=== PATIENT | female | born 1965 | race Caucasian/White ===

== ENCOUNTER 2016-05-24 06:00 | Day surgery (SDC) | payer OTHER ==
--- NOTE | 2016-03-29 14:40 | PCM.HPANE ---
Patient Data Date of Service: Mar 29, 2016 Surgeon Admitting Provider: Attending Provider:Perico Owens MD Primary Care Physician:Perico Miller MD Other Provider:Razia Gracia Anesthesia Reason for Visit Stg 2 Cystocele, Stg 1-2 Vault Prolapse STG 2 CYSTOCELE, STG 1-2 VAULT PROLAPSE Ht/WT & BMI Height (Feet): 5 Height (Inches): 4 Weight (Kilograms): 86.18 Body Mass Index 32.00 Allergies Coded Allergies: No Known Allergies (Unverified , 11/18/15) Past Anesthesia History Anesthesia History: Positive for:: Abnormal Airway ("loses" voice a lot, being worked up ), Difficult Intubation (vocal ENT request smallest tube poss, chronic hoarseness), Denies:: Anesthesia Reactions, Fam Anesthesia Reaction Diabetes History Hx Diabetes?: No MRSA MRSA: Yes (2007- ) Medications Hypertension Medication: No Home Meds Incl Beta Teresa: No Reported Medications Aspirin 81 Mg [id number] Mg PO DAILY Ref 0 03/27/16 Phenazopyridine (Pyridium)100 Mg [id number] Mg PO TID PRN For Pain Ref 0 03/27/16 [nitrofurantoin] No Conflict Check60 Mg ONCE post coital 03/27/16 [omeprazole] No Conflict CheckUnknown Dose DAILY 03/27/16 Beclomethasone Dipropionate (Qvar)8.7 Gm Aer.w.adap1 Puff INHALATION BID #8.7 GM 03/27/16 Cetirizine HCl (Zyrtec)10 Mg Mgbhhpl99 Mg PO HS #30 CAPSULE Ref 0 03/27/16 Clonidine 0.1 Mg Tablet0.1 Mg PO HS Ref 0 03/27/16 Bupropion ER 150 Mg Tablet.er150 Mg PO DAILY Ref 0 03/27/16 Ciprofloxacin (Cipro)500 Mg Xsyhyr495 Mg PO BID Ref 0 03/27/16 Discontinued Scripts Ranitidine 75 Mg Ycvfvn78 Mg PO BID #60 TABLET Prov:Anne Iraheta MD 02/12/16 Meloxicam 7.5 Mg Tablet7.5 Mg PO DAILY #30 TABLET Ref 0 Prov:Anne Iraheta MD 02/12/16 History History of ENT Problems?: Yes HEENT History: Positive for:: Abnormal Airway ("loses" voice a lot, being worked up ) Difficult Intubation (vocal ENT request smallest tube poss, chronic hoarseness ) Hearing Problem (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, multiple surgeries, PE tubes x 3 ) Denies:: Cataracts Glaucoma Denture Type: Full- Upper Hx of Heart Problems?: No Cardiovascular History: Denies:: AICD Abdominal Aortic Aneurism Atrial Fibrillation Cardiac Surgery Congestive Heart Failure Coronary Artery Disease Edema Heart Murmur Hypertension Irregular Heartbeat Pacemaker Peripheral Vascular Hx of Respiratory Problem?: Yes Respiratory History: Positive for:: Asthma COPD (suspected) Use of Inhalers / NEBS Denies:: Oxygen Administration Pneumonia Tuberculosis Use of C-PAP Machine Hx Neurologic Problems?: No Neurological History: Denies:: CVA Dizziness Headaches Multiple Sclerosis Parkinson's Disease Seizures TIA Hx of GI Problems?: Yes Gastrointestinal History: Positive for:: Gall Bladder Disease (removed ) Hepatitis (chronic Hep C) Liver Disease Denies:: Cirrhosis Gastroesphageal Reflux Gastrointestinal Bleeding Heartburn Hiatal Hernia Rectal Bleeding Hx of Problems?: Yes Genitourinary History: Positive for:: Urinary Tract Infection (recurrent ) Denies:: Kidney Stones Female Hx: Denies:: Currently Problems with Breasts? Skin History: Positive for:: History Skin Disorders? (spider bite on bottom "getting much better") Denies:: Pressure Ulcers Hx Musculoskeletal Problems?: Yes Musculoskeletal History: Positive for:: Back Injury (prior back surgery) Musculoskeletal Trauma Osteoarthritis (doesnt know type of arthritis) Rheumatoid Arthritis Denies:: Fibromyalgia (pt thinks she has this, never been worked up for) Joint Replacement Myasthenia Gravis Hx of Psycho/Social Problems?: Yes Psycho Social History: Positive for:: Anxiety Hx Depression Hx Surgeries?: Yes (ruth, back surgery, hyst, mesh, bladder sling) Hx Any Other Health Problems?: Yes Other History: Denies:: Cancer Thyroid Disease History Blood Transfusions: Positive for:: Accept Blood Products? Denies:: Blood Transfusions Hx Diabetes: No Hx Alcohol Use: NoHx Substance Use: No Smoking Status: Unknown if Ever Smoker Have You Smoked inLast 12 mo: Yes Stop/Bang P-Blood Pressure: treated: No B- Body Mass Index > 35 kg/m2: No A- Age over 50: No N- Neck Large Circumference: No G- Gender Male: No Risk Assessment Category Category 1A: Patient has history of documented sleep apnea, and HAS NOT received any narcotic, sedative or anesthesia administration during this stay. Category 1B: Patient has history of documented sleep apnea, and HAS received any narcotic , sedative or anesthesia administration during this stay Category 2: Patient has SUSPECTED Obstructive Sleep Apnea, and HAS received any narcotic , sedative or anesthesia administration during this stay. Category 3: Patient has SUSPECTED Obstructive Sleep Apnea and HAS NOT received narcotic, sedative or anesthesia administration during this stay. Category 4: Outpatient in Procedural Areas with known sleep apnea or who screen positive for High Risk via the STOP/BANG questionnaire. Plan Impression Patient chart reviewed, patient interviewed and anesthestic plan with risks, benefits, and alternatives discussed, and informed consent obtained. Other Patient no showed. Cancel this. Christofer Spann MD Mar 29, 2016 10:25
[~2016-05-24] VITALS: Ht 162.6 cm; Wt 83.4 kg
[2016-05-24] VITALS (13 sets, daily range): BP systolic 108–131; BP diastolic 57–77; PULSE 87–98; RESP 10–18; O2SAT 94–97
[2016-05-24] MEDS: Lactated Ringer's 1,000 ML IV SCH ×3 (05:00→08:16)
[~2016-05-24 06:00] MED LIST: BECL8.7A5 INHALATION; BUPR150T12 PO; CETI10CA PO; CLON0.1T PO; CeFAZolin Inj 2 GM in IV Premix 1 EACH IV ONE; Lactated Ringer's 1,000 ML IV SCH; PHEN-683 PO; Phenazopyridine 97.5 mg Tablet PO ONE; SULF1TAB7 PO; omeprazole
[2016-05-24] MEDS ORDERED: fentaNYL-PF 50 mCg/mL 2 mL Inj ONE (06:01)
[2016-05-24] MEDS ORDERED: Ondansetron 2 mg/mL 2 mL Inj ONE (06:01)
[2016-05-24] MEDS ORDERED: Dexamethasone 4 mg/mL Inj ONE (06:01)
[2016-05-24] MEDS ORDERED: Propofol 10,000 mCg/mL 20 mL Inj ONE (06:01)
[2016-05-24] MEDS ORDERED: HYDROmorphone 2 mg/mL Inj ONE (06:01)
--- NOTE | 2016-05-24 07:24 | PCM.HPANE ---
Patient Data Date of Service: May 24, 2016 Surgeon Admitting Provider: Attending Provider:Perico Owens MD Primary Care Physician:Perico Miller MD Other Provider:Razia Gracia Anesthesia Reason for Visit Stg 2 Cystocele, Stg 1-2 Vault Prolapse STG 2 CYSTOCELE, STG 1-2 VAULT PROLAPSE Ht/WT & BMI Height (Feet): 5 Height (Inches): 4.00 Weight (Kilograms): 82.9 Body Mass Index 31.00 Allergies Coded Allergies: No Known Allergies (Unverified , 05/23/16) Past Anesthesia History Anesthesia History: Positive for:: Abnormal Airway (HOARSENESS R/T ALLERGIES, ACCORDING TO ENT WORKUP), Difficult Intubation (vocal ENT request smallest tube poss, chronic hoarseness), Denies:: Anesthesia Reactions, Fam Anesthesia Reaction, Malignant Hyperthermia Diabetes History Hx Diabetes?: No MRSA MRSA: Yes (2007- ) Medications Hypertension Medication: No Home Meds Incl Beta Teresa: No Reported Medications Sulfamethoxazole/Trimeth 800-160 mg (Bactrim DS)1 Each Tablet1 Tablet PO BID Ref 0 X 5 DAYS-START 05/19/16 05/23/16 Phenazopyridine (Pyridium)100 Mg Ewfmsk521 Mg PO TID PRN For Pain Ref 0 03/27/16 [omeprazole] No Conflict CheckUnknown Dose DAILY 03/27/16 Beclomethasone Dipropionate (Qvar)8.7 Gm Aer.w.adap1 Puff INHALATION BID #8.7 GM 03/27/16 Cetirizine HCl (Zyrtec)10 Mg Ljsrmjd32 Mg PO HS #30 CAPSULE Ref 0 03/27/16 Clonidine 0.1 Mg Tablet0.1 Mg PO HS Ref 0 03/27/16 Bupropion ER 150 Mg Tablet.er150 Mg PO DAILY Ref 0 03/27/16 Discontinued Reported Medications Aspirin 81 Mg [id number] Mg PO DAILY Ref 0 03/27/16 [nitrofurantoin] No Conflict Check60 Mg ONCE post coital 03/27/16 Ciprofloxacin (Cipro)500 Mg Cldnrj601 Mg PO BID Ref 0 03/27/16 History History of ENT Problems?: Yes HEENT History: Positive for:: Abnormal Airway (HOARSENESS R/T ALLERGIES, ACCORDING TO ENT WORKUP) Difficult Intubation (vocal ENT request smallest tube poss, chronic hoarseness ) Hearing Problem (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, multiple surgeries(X8), PE tubes x 3) Sinus Problem Denies:: Cataracts Glaucoma Denture Type: Full- Upper Hx of Heart Problems?: No Cardiovascular History: Denies:: AICD Abdominal Aortic Aneurism Atrial Fibrillation Cardiac Surgery Congestive Heart Failure Coronary Artery Disease Edema Heart Murmur Hypertension Irregular Heartbeat Pacemaker Peripheral Vascular Hx of Respiratory Problem?: Yes Respiratory History: Positive for:: Asthma COPD (suspected) Cough (CHRONIC) Use of Inhalers / NEBS Denies:: Oxygen Administration Pneumonia Tuberculosis Use of C-PAP Machine Hx Neurologic Problems?: No Neurological History: Denies:: CVA Dizziness Headaches Multiple Sclerosis Parkinson's Disease Seizures TIA Hx of GI Problems?: Yes Gastrointestinal History: Positive for:: Gall Bladder Disease (S/P RANI) Gastroesphageal Reflux Hepatitis (chronic Hep C) Liver Disease Denies:: Cirrhosis Gastrointestinal Bleeding Heartburn Hiatal Hernia Rectal Bleeding Hx of Problems?: Yes Genitourinary History: Positive for:: Urinary Tract Infection (recurrent - ON ABX) Denies:: Kidney Stones Female Hx: Denies:: Currently Problems with Breasts? Skin History: Positive for:: History Skin Disorders? (spider bite on bottom "getting much better", HX ECZEMA) Denies:: Pressure Ulcers Hx Musculoskeletal Problems?: Yes Musculoskeletal History: Positive for:: Back Injury Musculoskeletal Trauma (S/P KNEE RPR) Osteoarthritis (doesnt know type of arthritis) Rheumatoid Arthritis Denies:: Fibromyalgia (pt thinks she has this, never been worked up for) Joint Replacement Myasthenia Gravis Hx of Psycho/Social Problems?: Yes Psycho Social History: Positive for:: Anxiety Hx Depression Hx Surgeries?: Yes (HYST,BLADDER SLING,SPINE SURGERY X2,RANI,KNEE RPR,EAR PROCEDURE X8) Hx Any Other Health Problems?: Yes Other History: Denies:: Cancer Endocrine Disease Hospitalization Thyroid Disease History Blood Transfusions: Positive for:: Accept Blood Products? Denies:: Blood Transfusions Hx Diabetes: No Hx Alcohol Use: NoHx Substance Use: No Smoking Status: Unknown if Ever Smoker Have You Smoked inLast 12 mo: YesApprox How Many Cigarettes/day: 3 C/DAY Stop/Bang Treated for Sleep Apnea?: No Do You Have a CPAP Machine?: No S-Snoring: Do You Snore Loudly: No T-Tired: feel tired, fatigued: No O-Obsered: Observed not breath: No P-Blood Pressure: treated: No B- Body Mass Index > 35 kg/m2: No A- Age over 50: No N- Neck Large Circumference: No G- Gender Male: No WILLIAMS Total Score: 0 WILLIAMS Risk Assessment: Low Risk, <3 Yes Risk Assessment Category Category 1A: Patient has history of documented sleep apnea, and HAS NOT received any narcotic, sedative or anesthesia administration during this stay. Category 1B: Patient has history of documented sleep apnea, and HAS received any narcotic , sedative or anesthesia administration during this stay Category 2: Patient has SUSPECTED Obstructive Sleep Apnea, and HAS received any narcotic , sedative or anesthesia administration during this stay. Category 3: Patient has SUSPECTED Obstructive Sleep Apnea and HAS NOT received narcotic, sedative or anesthesia administration during this stay. Category 4: Outpatient in Procedural Areas with known sleep apnea or who screen positive for High Risk via the STOP/BANG questionnaire. Exam Exam Vital Signs Vital Signs Date Time Temp Pulse Resp B/P Pulse Ox O2 Delivery O2 Flow Rate FiO2 05/24/16 06:43 36.4 87 16 116/72 95 Room Air General Appearance: Alert, Oriented X3, Cooperative, No Acute Distress HEENT/AIRWAY: MP 2 (Upper plate) Lungs: Clear to Auscultation, Diminished Heart: Exam Unremarkable, Regular Rate/Rhythm, Normal S1, Normal S2, No Murmurs /Rubs/Gallops Meds/Labs/Diagnostics Admission Meds Current Medications Lactated Ringer's (Lr) 1,000 ml @ 120 mls/hr Q8H20M IV Last administered on 05:38; Start 05/24/16 at 05:00; Stop 05/24/16 at 13:19 Phenazopyridine HCl (Pyridium) 200 mg PREOP ONCE PO Last administered on 07:00; Start 05/24/16 at 06:00; Stop 05/24/16 at 06:00; Status DC Plan Impression Patient chart reviewed, patient interviewed and anesthestic plan with risks, benefits, and alternatives discussed, and informed consent obtained. NPO Status: 05/23 at 2100 ASA Physical Status: ASA3 Severe Disease Anesthetic Plan: GA Bene/Risks/Altern/Consents: Yes HP Complete Prior to Induction: Yes Don Mcqueen DO May 24, 2016 07:24
[2016-05-24] MEDS ORDERED: Lidocaine 1%/Epi 1:100,000 30 mL MDV INFILTRATE ONE ×2 (08:06→10:13)
[2016-05-24] MEDS ORDERED: Gentamicin 40 mg/mL 2 mL Inj IRRIGATION ONE (08:07)
[2016-05-24] MEDS ORDERED: Ondansetron 2 mg/mL 2 mL Inj IVPUSH PRN ×2 (08:55→11:30)
[2016-05-24] MEDS ORDERED: fentaNYL-PF 50 mCg/mL 2 mL Inj IVPUSH PRN (08:55)
[2016-05-24] MEDS ORDERED: Phenylephrine 10,000 mCg/mL Inj IVPUSH PRN (08:55)
[2016-05-24] MEDS ORDERED: Labetalol 5 mg/mL 4 mL Inj IV PRN (08:55)
[2016-05-24] MEDS ORDERED: Dexamethasone 4 mg/mL Inj IVPUSH PRN (08:55)
[2016-05-24] MEDS ORDERED: Lactated Ringer's 1,000 ML IV SCH (08:55)
[2016-05-24] MEDS ORDERED: Lactated Ringer's 500 ML IV PRN (08:55)
[2016-05-24] MEDS ORDERED: EPHEDrine Sulfate 50 mg/mL Inj IVPUSH PRN (08:55)
[2016-05-24] MEDS ORDERED: HYDROmorphone 1 mg/mL Inj IVPUSH PRN (08:55)
[2016-05-24] MEDS ORDERED: MetoCLOpramide 5 mg/mL 2 mL Inj IVPUSH PRN ×2 (08:55→11:30)
[2016-05-24] MEDS ORDERED: Atropine 0.4 mg/mL Inj IVPUSH PRN (08:55)
[2016-05-24 09:02] LABS: APPEARANCE,URINE HAZY (CLEAR,HAZY); COLOR,URINE ORANGE (YELLOW)
[2016-05-24] MEDS ORDERED: Estrogens Conjugated 30 Gm Vaginal Cream VAGINAL ONE (10:16)
[2016-05-24] MEDS ORDERED: Lactated Ringer's 1,000 ML IV ONE (10:46)
[2016-05-24] MEDS: 0.9% Sodium Chloride 1,000 ML IV SCH ×2 (11:28→23:15)
[2016-05-24] MEDS ORDERED: Alum-Mag Hydrox-Simeth 30 mL Suspension PO PRN (11:30)
--- NOTE | 2016-05-24 11:34 | PCM.ANEP1 ---
Post Anesthesia Phase 1 PACU Phase 1 Assessment Date of Service: May 24, 2016 Vital Signs Vital Signs Date Time Temp Pulse Resp B/P Pulse Ox O2 Delivery O2 Flow Rate FiO2 05/24/16 11:30 96 10 112/67 97 Simple Mask 05/24/16 11:25 36.5 98 15 116/66 97 Simple Mask 8 05/24/16 06:43 36.4 87 16 116/72 95 Room Air Anesthetic Administered: GA Level of Alertness: Drowsy, not talking INTERIANO's with Equal Strength: No Pain: No Pain Scale Score: 0 Nausea or Vomiting: No Airway Device: Oralpharangeal Airway Oxygen Delivery: Simple Mask (6L) Lungs: Clear to Auscultation, Diminished Don Mcqueen DO May 24, 2016 11:34
--- NOTE | 2016-05-24 12:40 | NUR ---
arrived to room 1008 from PACU pt sleeping deeply but easily aroused, snoring while asleep, [employer] applied and pt sats mid to high 90s on 3L oxygen, rare prod cough, denies pain at this time. VSS, smal amt vag bleeding
--- NOTE | 2016-05-24 15:25 | PCM.ANEP2 ---
Post Anesthesia Evaluation ASA/CMS Post Anesthesia Date of Service: May 24, 2016 VS in Patient's Normal Range?: Yes Resp Stable; Airway Patent?: Yes CV Function & Hydration Stable: Yes Mental Status Recovered?: Yes Pain control Satisfactory?: Yes N/V Control Satisfactory?: Yes Don Mcqueen DO May 24, 2016 15:25
[2016-05-24] MEDS: HYDROmorphone 1 mg/mL Inj IVPUSH PRN ×2 (15:56→20:09)
[2016-05-24] MEDS: Trimethoprim-Sulfa 160 mg-800 mg Tablet PO SCH (20:07)
[2016-05-24] MEDS: Fluticasone 100 mCg Inhaler INHALATION SCH (20:07)
[2016-05-24] MEDS: Acetaminophen IV 1,000 MG in IV Premix 1 EACH IV PRN (20:08)
[2016-05-24] MEDS ORDERED: Trimethoprim-Sulfa 160 mg-800 mg Tablet PO SCH (20:30)
[2016-05-24] MEDS ORDERED: cloNIDine 0.1 mg Tablet PO SCH (21:00)
--- NOTE | 2016-05-24 23:10 | PCM.SURGOP ---
Surgical Operative Report Date of Service: May 24, 2016 Pre Operative Diagnosis 1. Anterior, posterior and apical vaginal prolapse Post Operative Diagnosis 1. 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 Pelvic adhesions Procedure: 1. Anterior and posterior repair with Xenform graft augmentation, 2. High uterosacral ligament vaginal vault suspension and enterocele repair. 3. Pelvic adhesiolysis 4. Cystocele Surgeon and Geographic Information Systems Manager: Surgeon: Perico Owens MD Assistants: Natalie Buitrago MD Indication for Procedure Maria D has a history of previous TVH BSO, Ant and Post repair, and Waldron sling (Dr. Pierson and Dr. Meade on 09/17/2003). She complains of recurrent pelvic prolapse. She was noted to have a POPQ stage 2 vaginal prolapse 1. The pelvic prolapse symptoms are affecting her ADL's (activities of daily living). From the Incontinence Impact Questionnaire/Urogenital Distress Inventory from 03/12/15, she answers the following: a. Has urine leakage and/or prolapse affected your emotional health: Answer = MODERATELY b. Has urine leakage and/or prolapse have you feeling frustrated: Answer = GREATLY c. They are also affecting her ability to travel by car or bus d. Do you experience, and if so, how much are you bothered by: frequent urination: Answer = GREATLY 2. Urine dipstick on Feb 23 and Mar 02 were negative. A urine culture will be sent to the lab on 03/17/16 3. Urodynamics has ruled out urge incontinence/detrusor overactivity incontinence. In addition no stress incontinence is noted. 4. Medications are deemed non-contributory since the urgency symptoms are now mild after being improved with dietary modification, not requiring medication. The patient is a candidate for surgical prolapse management in the form of:. [ anterior repair and posterior repair with Xenform graft augmentation, high uterosacral ligament vaginal vault suspension and enterocele repair. The patient signed the consent form. She agreed with the risks, benefits, and alternatives to surgery. The risks included but not limited to recurrence or persistence of prolapse, recurrence of persistence of incontinence, development of voiding dysfunction, development of urinary urgency, urgency incontinence, frequency, and need for intermittent self-catheterization or prolonged indwelling catheterization, injury to other organs including bladder, bowel, nerves or blood vessels. Need for blood transfusion, need for temporary colostomy or urinary stenting. Development of vaginal scarring, dyspareunia, defecatory dysfunction, recurring pain, hematoma formation, urinary tract infection, cellulitis, necrotizing fascitis, and medical risks including myocardial infarction, stroke or VTE. She also understood the FDA warnings associated with the use of vaginal graft (dysparunia, vaginal erosion, erosion into bowel/bladder/urethra, requiring further surgery to correct these complications). The patient understood the risks and benefits and consented to surgery. Findings: Thin pelvic adhesions involving bowel to pelvic sidewall bilaterally. These were taken down vaginally via blunt and sharp dissection. POPQ Stage 2 vaginal prolapse to the hymen of the anterior, posterior and apical vaginal segments. Deficient pubovesical and rectovaginal fascia. Procedure Details SURGICAL TECHNIQUE: The patient was brought to the operating room and was placed under general anesthesia. She was prepped and draped in the normal fashion for vaginal surgery with the legs in Yellofin stirrups. She was given a dose of 2 gram IV ancef intraoperatively. She received 200 mg of oral pyridium in the pre-operative holding area. Examination under anesthesia revealed prolapse of the anterior, posterior and apical segments to the hymen (POPQ Stage 2). 1. Anterior colporrhaphy with Xenform graft augmentation: Lidocaine 0.5% with [id number] epinephrine was infiltrated along the anterior vaginal wall mucosa. A midline vertical incision was made through the anterior vaginal wall. The vaginal wall was dissected off the underlying pubocervical and pubovesical fascia. The dissection was extended laterally beyond the ischial pubic rami. It was noted that the pubocervical and pubovesical fascial tissues were deficient and thin. During the apical dissection, an enterocele sac was encountered and this was entered with sharp dissection with Metzenbaum scissors. We then proceeded with a vault suspension and would later resume the anterior repair. 2. Pelvic adhesiolysis, high uterosacral ligament vaginal vault suspension, cystoscopy, and enterocele repair: Several mini-laparotomy sponges were packed to retract the bowel upwards. Thin adhesions were noted involving bowel and pelvic sidewall. These were carefully taken down using sharp dissection with metzenbaums and blunt dissection. A pair of Allis clamps were placed along the intraperitoneal portions of the vagina @ the 5 & 7 o'clock positions. Tension along these Allis clamps allowed for identification of the uterosacral ligaments bilaterally. A set of two, 0 Vicryl sutures were passed around each uterosacral ligament at the level of the ischial spine bilaterally, totalling four. While tension was applied to the vault sutures, cystoscopy was performed. Both ureteric orifices were noted to be functional by the brisk spillage of pyridium-stained urine. Next, two 3-0 Prolene sutures were placed transversely through the cul-de-sac peritoneum. This was performed while using a gloved finger in the rectum as to avoid penetrating the underlying rectal mucosa. Tying these sutures obliterated the enterocele. We then proceeded with the rest of the anterior repair. The cystocele was plicated in 2 layers, the first layer with 2-0 Vicryl suture in interrupted fashion, the second layer with 2-0 Tycron suture in an interrupted fashion. A Trapezoidal piece of Xenform graft was then incorporated atop the plicated area. Far laterally, the graft was secured to the obturator internus membrane. At the level of the bladder neck, an upside down triangular piece of graft was excised so that there was no over-support created along the level of the bladder neck. Apically, the graft was passed through 2 of the uterosacral ligament sutures. No anterior vaginal mucosa was needed to be excised. The high uterosacral ligament vaginal vault suspension sutures were passed through the planned apex of the vagina. The vagina was then reapproximated using 3-0 Vicryl suture in a running locked fashion. 3. Posterior colpoperineorrhaphy with Xenform graft augmentation: Lidocaine 0.5 % with 1:200,000 of epinephrine was infiltrated along the perineum and posterior vaginal wall mucosa. A héctor-shaped wedge of perineum was excised. A Midline vertical incision was made through the posterior vagina with a scalpel. The vaginal mucosa was dissected off the underlying rectovaginal tissues. It was noted the fascial tissues were thin and deficient especially at the area of the apex. The rectocele was plicated in one layer using 2-0 Vicryl suture in an interrupted fashion. A rectangular piece of Xenform graft was then sutured above the plicated tissue. Apically, laterally and distally the graft was secured using 2-0 Vicryl suture in interrupted fashion. Small amount of excess posterior vaginal mucosa was excised. The vagina was then reapproximated using 3-0 Vicryl suture in a running locked fashion. Perineum was reapproximated using 2-0 Vicryl suture in an interrupted fashion. The skin was reapproximated using 3-0 Vicryl suture in a subcuticular fashion. Then we proceeded with cystoscopy. Cystoscopy revealed a normal appearing urethra and bladder. Immature squamous metaplasia was noted along the trigone. Both ureteral orifices were visualized and noted to be functional by the brisk spillage of pyridium-stained urine. The Hadley catheter was then reinserted. The estimated blood loss was approximately 150 mL. There were no complications. Her hips were deflexed periodically during the case. All sponges and instruments were accounted for. Complications There were no periprocedural complications identified. Surgical Specimen Removed: No Specimen sent to Pathology: No Anesthetic Plan: GA Grafts, Implants: Grafts-See Implant Record Output, Estimated Blood Loss: 150 (ml) Blood Administration during harrell: No Drains: None Catheters: Urethral 2 Way Hadley Post Operative Plan overnight observation in bed as she requires a voiding trial in the am copies to: Natalie Buitrago MD; Judy Connelly MD; Perico Owens MD, William Andre Z MD May 24, 2016 23:10
[2016-05-25 00:46] VITALS: BP 117/73; PULSE 70; RESP 16; O2SAT 95
--- NOTE | 2016-05-25 01:45 | NUR ---
Sleep Patient has been sleeping most of shift, but easy to arouse. 97% on 2L O2. Patient tolerating food and fluids well. Vitals stable. Patient A&Ox3.
[2016-05-25] MEDS: HYDROmorphone 1 mg/mL Inj IVPUSH PRN ×2 (03:10→08:16)
[2016-05-25 04:11] VITALS: BP 123/71; PULSE 83; RESP 18; O2SAT 97
[2016-05-25] MEDS: Acetaminophen IV 1,000 MG in IV Premix 1 EACH IV PRN (06:31)
[2016-05-25 07:14] LABS: BASOPHILS % (AUTO) 0.4 % (0-3); EOSINOPHILS % (AUTO) 0.3 % (0-5); MONOCYTES % (AUTO) 10.8 % (4-12); Mean Corpuscular Hemoglobin 29.2 pg (27.0-35.0); Mean Corpuscular Volume 88.4 fL (81-100); NEUTROPHILS % (AUTO) 60.5 % (40-74); Platelet Count 275 bil/L (150-400)
[2016-05-25] MEDS: 0.9% Sodium Chloride 1,000 ML IV SCH ×2 (07:36→11:28)
[2016-05-25] MEDS: Fluticasone 100 mCg Inhaler INHALATION SCH (08:12)
[2016-05-25] MEDS ORDERED: Heparin 5,000 Unit/mL Inj SUBQ SCH (08:30)
[2016-05-25] MEDS ORDERED: buPROPion SR 150 mg ER12 Tablet PO SCH (08:30)
[2016-05-25] MEDS: Trimethoprim-Sulfa 160 mg-800 mg Tablet PO SCH (08:30)
[2016-05-25] MEDS ORDERED: Senna-Docusate 8.6-50 mg Tablet PO SCH (08:30)
--- NOTE | 2016-05-25 11:50 | PCM.PNSURG ---
Subjective Date of Service: May 25, 2016 Date of Service: May 25, 2016 Visit Information: Reason for Visit Stg 2 Cystocele, Stg 1-2 Vault Prolapse Surgery/Surgery Date Ant/Post repair 03/29/16 Post-Op Day # 1 Subjective: AVSS Failed voiding trial ambulatory pain control adequate on oral analgesia tolerating po intake OR explained Postop General: No Complaints Gastrointestinal: Good Appetite Pain Management: PO Postop Activity: Ambulating Independently Objective Vital Sign- Last 8 Hours Date Time Temp Pulse Resp B/P Pulse Ox O2 Delivery O2 Flow Rate FiO2 05/25/16 04:11 36.7 83 18 123/71 97 Nasal Cannula 3.00 Intake and Output- Last 8 Hour 05/25/16 Cumulative From/Thru 07:00 03/27/16 14:47 - 05/25/16 06:07 Intake Total 2227 ml 4757 ml Output Total 1500 ml 2100 ml Balance 727 ml 2657 ml Intake Oral 800 ml 1480 ml IV Total 1427 ml 3277 ml Output Urine Total 1350 ml 1800 ml Estimated Blood Loss 150 ml 300 ml # Bowel Movements 0 0 General: Alert Lungs: Clear to Auscultation Abdomen: Normoactive bowel tones, Other Catheters: Urethral 2 Way Peoples Result Diagram: 05/25/16 0457 Lab & Micro Results: Laboratory Tests 72 Hours Test 05/24/16 08:00 05/25/16 04:57 Urine Color [place] (YELLOW) Urine Appearance Hazy (CLEAR,HAZY) Urine pH (5.0-8.0) Urine Specific [place] 1.025 (1.003-1.035) Urine Protein mg/dL (NEG,TRACE) Urine Glucose (UA) mg/dL (NEGATIVE) Urine Ketones mg/dL (NEGATIVE) Urine Occult Blood (NEGATIVE) Urine Nitrite (NEGATIVE) Urine Bilirubin (NEGATIVE) Urine Urobilinogen mg/dL (NORMAL) Urine Leukocyte Esterase (NEGATIVE) Urine RBC 0-2/hpf (0-2) Urine WBC 0-5/hpf (0-5) Urine Epithelial Cells Moderate/hpf (NONE-MOD) Urine Crystals None seen (NONE SEEN) Urine Bacteria Few/hpf (NONE-FEW) Urine Hyaline Casts None/lpf (NONE) Urine Granular Casts None seen (NONE SEEN) Urine Waxy Casts None seen (NONE SEEN) Urine Red Blood Cell Casts None seen (NONE SEEN) Urine White Blood Cell Casts None seen (NONE SEEN) Urine Mucus Present (None Seen) Urine Trichomonas None seen (NONE SEEN) Urine Yeast None (NONE SEEN) Urinalysis Comment Color interference Urine Culture Reflexed Not indicated Urine Opiates Screen Negative Urine Methadone Screen Negative Urine Barbiturates Screen Negative Urine Amphetamines Screen Positive Urine Benzodiazepines Screen Negative Urine Cocaine Metabolite Screen Negative Urine Cannabinoids Screen Negative White Blood Count 9.3th/mm3 (3.8-10.1) Red Blood Count 4.21mil/mm3 (3.90-5.20) Hemoglobin 12.3g/dL (12.0-15.6) Hematocrit 37.2% (35.0-46.0) Mean Corpuscular Volume 88.4fL (81-100) Mean Corpuscular Hemoglobin 29.2pg (27.0-35.0) Mean Corpuscular Hemoglobin Concent 33.1% (32.0-37.0) Red Cell Distribution Width 13.3% (12.3-15.4) Platelet Count 275bil/L (150-400) Neutrophils (%) (Auto) 60.5% (40-74) Lymphocytes (%) (Auto) 27.4% (14-46) Monocytes (%) (Auto) 10.8% (4-12) Eosinophils (%) (Auto) 0.3% (0-5) Basophils (%) (Auto) 0.4% (0-3) Assessment & Plan Impression Stable for discharge failed voiding trial positive amphetamine urine toxin screen Problems: Plan d/c home peoples teaching return to clinic in 1 wk for voiding trial, in 2 wk for vaginal exam F/U with GP regarding amphetamine positive screen; patient admits to using amphetamines VTE Prophylaxis: Sub-Q Heparin (Unfractionated) Resuscitation Status: CPR: Attempt Resuscitation copies to: Perico Miller MD; Perico Owens MD; stephen de la cruz MD, William Andre Z MD May 25, 2016 11:50
--- NOTE | 2016-05-25 11:57 | PCM.DIGYN ---
Surgical Discharge Instruction Dates of Hospitalization Date of Hospital Admission overnight observation in bed 05/24/16 - 05/25/16 Providers Admitting Physician: Primary Care Physician: Perico Miller MD Attending Physician: Perico Owens MD Diagnosis at Time of Discharge Diagnosis at time of discharge 1. 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 Pelvic adhesions 4. Amphetamine abuse Post-operative diagnosis 1. 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 Pelvic adhesions Problems: Diet Discharge Diet: No restrictions Activity Discharge Activity-General: Restrict lifting to no greater than (10 lbs for 6 wk) Dressing and Incisional Care Hygiene: May shower Follow Up Plan Follow Up Plan see Dr. Owens's MA in 1 wk for a voiding trial see Dr. Owens in 2 wk for a vaginal exam f/u with GP regarding substance abuse Call your provider for: Fever, Chills, Shortness of breath, Vomitting, Heavy vaginal bleeding, Increasing pain Perico Owens MD May 25, 2016 11:57
--- NOTE | 2016-05-25 13:54 | NUR ---
discharged pt was unable to void during void trial, [place] was replaced. Also vag packing removed. Eating/drinking well, ambulating, no nausea, fairly good pain control, scant vag bleeding. Discharged home with , will have f/u appt with Dr Owens
== END 2016-05-25 12:30 | disposition home or self-care (01) ==
LOC: SAS 06:00 → OSC 12:37 → SAS 05-25 12:30
PROVIDERS: ATTEND Obstetrics & Gynecology
DX: N99.3 Prolapse of vaginal vault after hysterectomy (principal); G89.18 Other acute postprocedural pain; R39.15 Urgency of urination; R39.14 Feeling of incomplete bladder emptying; R32 Unspecified urinary incontinence; R15.9 Full incontinence of feces; N73.6 Female pelvic peritoneal adhesions (postinfective); R10.2 Pelvic and perineal pain; J44.9 Chronic obstructive pulmonary disease, unspecified; B18.2 Chronic viral hepatitis C; F98.8 Other specified behavioral and emotional disorders with onset usually occurring in childhood and adolescence; F41.9 Anxiety disorder, unspecified; M19.90 Unspecified osteoarthritis, unspecified site; M06.9 Rheumatoid arthritis, unspecified; J45.909 Unspecified asthma, uncomplicated; F17.210 Nicotine dependence, cigarettes, uncomplicated; Z79.82 Long term (current) use of aspirin; Z90.710 Acquired absence of both cervix and uterus; Z87.898 Personal history of other specified conditions; Z87.440 Personal history of urinary (tract) infections; Z86.14 Personal history of Methicillin resistant Staphylococcus aureus infection

== ENCOUNTER 2016-10-11 04:11 | Emergency (ER) | payer OTHER ==
[~2016-10-11] VITALS: Ht 162.6 cm; Wt 84.5 kg
[~2016-10-11 04:11] MED LIST changes: -CeFAZolin Inj 2 GM in IV Premix 1 EACH IV ONE; -Lactated Ringer's 1,000 ML IV SCH; -Phenazopyridine 97.5 mg Tablet PO ONE
[2016-10-11 04:26] VITALS: BP 122/72; PULSE 90; RESP 16; O2SAT 97
--- NOTE | 2016-10-11 05:11 | ED.REPORT ---
HPI-Rash / Abscess Date of Service Oct 11, 2016 ED Provider: Omi Godwin MD Pt is a 50 year old female with a hx of methamphetamine abuse presenting to the ED complaining of pain, redness and swelling to her right lower abdomen onset due to a spider bite. She was seen at [facility] and had the wound cultured which was positive for MRSA and was started on antibiotics. Associated symptoms include abdominal cramping, right leg pain, and chills. Denies cough, congestion , SOB or wheezing. She admits to doing meth today but denies any hx of IV drug use. Nursing Notes Stated Complaint: POSSIBLE MRSA Chief Complaint: Skin Rash/Abscess Nursing Notes Reviewed: Yes Allergies: Coded Allergies: No Known Allergies (Unverified , 05/23/16) Scheduled ([omeprazole]) Unknown Dose DAILY Beclomethasone Dipropionate (Qvar) 8.7 Gm Aer.w.adap 1 PUFF INHALATION BID Bupropion ER (Bupropion ER) 150 Mg Tablet.er 150 MG PO DAILY Cetirizine HCl (Zyrtec) 10 Mg Capsule 10 MG PO HS Clonidine (Clonidine) 0.1 Mg Tablet 0.1 MG PO HS Sulfamethoxazole/Trimeth 800-160 mg (Bactrim DS) 1 Each Tablet 1 TABLET PO BID X 5 DAYS-START 05/19/16 Scheduled PRN Phenazopyridine (Pyridium) 100 Mg Tablet 100 MG PO TID PRN PRN For Pain General Time Seen by MD: 05:06 Chief Complaint Sore Hx Obtained From: Patient Arrived By: Walk-in Onset Occurred: Onset unknown Symptom Duration: Since onset Location: : Abdomen: Lower extremity Quality: Painful Severity: Current: Moderate Severity: Maximum: Severe Recent Healthcare: No recent hospitalization, Recent doctor visit Similar Sx Previous: Yes Past Medical History Past Medical History Drug abuse Past Surgical History Knee surgery in (02/2013) Bladder reconstruction Reports: Cholecystectomy Smoking History Unknown if Ever Smoker Social History Alcohol Use: Denies alcohol use Drug Use: Meth Ambulatory Status Independent Review of Systems Constitutional: Reports: Chills Ears / Nose / Throat: Denies: Nasal congestion Respiratory: Denies: Non-productive cough, Shortness of breath, Wheezing GI: Reports: Abdominal pain Musculoskeletal: Reports: Extremity pain Skin: Reports Rash, Reports Swelling Complete sys rev & neg: except as marked. Physical Exam Initial Vital Signs Vital Signs (First) Date Time Temp Pulse Resp B/P Pulse Ox O2 Delivery O2 Flow Rate FiO2 10/11/16 04:26 36.7 90 16 122/72 97 Room Air Initial VS: Reviewed, Vital signs normal Head / Eyes: Atraumatic, Normocephalic, PERRL ENT: Mucous membranes moist, Conjunctiva normal, No scleral icterus Neck: Supple, Non-tender, Full range of motion Respiratory: Breath sounds normal, Clear to auscultation, No respiratory distress Cardiovascular: Regular rate & rhythm, Heart sounds normal, Intact distal pulses Abdomen / GI: Soft, Non-tender, No guarding, No rebound, No distention Extremities: Vascular intact, Neuro intact, No swelling, No tenderness Neurologic: Alert, Oriented, Nonfocal Psychiatric: Mood/affect normal, Behavior normal, Normal thought content General/Constitutional: Awake, Alert, No acute distress Skin: Warm, Dry, Intact 1 cm area of superficial skin ulceration right lower abdomen area with surrounding errythema. Varicose veins and distal neurovascular otherwise normal. No other significant rash or track alexander, no evidence of injection drug use. Interpretation & Diagnostics Lab Results Interpretation Test 10/11/16 04:30 Hold Urine Received (Received) Re-Eval/Medical Decision Med Decision/Clinical Course 50-year-old female with a small sore on her abdomen which was cultured and found to be MRSA. She is on clindamycin and will continue that. I will add a topical Bactroban. She also complains of right leg pain and has some varicose veins. There is no edema. She was fitted with JOSE hose. Re-Evaluation/Progress : Time of Eval: 05:31 Patient Status: Condition improved Re-Evaluation/Progress Note: Discussed plan for discharge. Pt understands and agrees with plan. Counseled Regarding: Diagnosis, Lab results, Need for follow-up, When/why to return to ED Discharge & Departure Impression: Primary Impression: Skin ulcer Non-pressure ulcer stage: limited to breakdown of skin Qualified Code: L98.491 - Non-pressure chronic ulcer of skin of other sites limited to breakdown of skin Additional Impression: MRSA infection Disposition: Home Discharge Condition All VS Reviewed: Yes Condition: Stable Patient Instructions: MRSA (Methicillin-Resistant Staphylococcus Aureus) (ED) Additional Instructions: Finish the clindamycin. Mupirocin (Bactroban) apply twice a day to the sore. Support hose should help decrease the pain of the varicose veins. Referrals: Perico Miller MD (PCP) Rosemarie[place]ale Attestation Portions of this note were transcribed by Yany Malcolm. I, Dr. Godwin personally performed the history, physical exam and medical decision-making; I reviewed and confirmed the accuracy of the information in the transcribed note. Signed by: Mariia Fisher, 10/11/2016. copies to: Perico Miller MD Leibrand, Howard L MD Oct 11, 2016 05:11 YANY MALCOLM Oct 11, 2016 05:21
[2016-10-11] MEDS ORDERED: Mupirocin 2% 22 Gm Ointment TOPICAL ONE (05:25)
[2016-10-11 06:04] VITALS: BP 126/74; PULSE 92; RESP 16; O2SAT 97
== END 2016-10-11 05:50 | disposition home or self-care (01) ==
LOC: SED 04:11
DX: L98.491 Non-pressure chronic ulcer of skin of other sites limited to breakdown of skin (principal); B95.62 Methicillin resistant Staphylococcus aureus infection as the cause of diseases classified elsewhere; M79.604 Pain in right leg; F15.10 Other stimulant abuse, uncomplicated; B18.2 Chronic viral hepatitis C; F17.210 Nicotine dependence, cigarettes, uncomplicated; Z90.49 Acquired absence of other specified parts of digestive tract